=== PATIENT | male | born 1955 | race Hispanic/Latino ===

== ENCOUNTER 2024-06-17 09:19 | Inpatient (IN) | payer OTHER, MEDICARE ==
[~2024-06-17] VITALS: Ht 162.6 cm; Wt 66.9 kg
[2024-06-17 09:45] LABS: APPEARANCE,URINE CLEAR (CLEAR); BILIRUBIN,URINE NEGATIVE (NEGATIVE); COLOR,URINE YELLOW (YELLOW); GLUCOSE, URINE (UA) NEGATIVE (NEGATIVE); KETONES,URINE 20 mg/dL (NEGATIVE); LEUKOCYTE ESTERASE ,URINE NEGATIVE Leu/uL (NEGATIVE); NITRATE,URINE NEGATIVE (NEGATIVE); PH,URINE 5.5 (5.0-8.0); PROTEIN,URINE 50 mg/dL (NEGATIVE)
[2024-06-17 09:47] LABS: HEMATOCRIT 44.3 % (42-54); MEAN CORPUSCULAR HGB CONC 35.2 g/dL (32.0-36.0); MEAN CORPUSCULAR VOLUME 90.8 fL (79-99); PLATELET COUNT (AUTO) 229 K/uL (130-400); RED BLOOD CELL COUNT(AUTO) 4.88 MIL/uL (4.50-6.20); RED CELL DISTRIBUTION WIDTH 12.8 % (11.0-15.5)
[2024-06-17 09:56] LABS: CREATININE 1.3 mg/dL (0.5-1.3); POTASSIUM 4.3 mmol/L (3.5-5.1)
[2024-06-17 09:58] LABS: BASOPHILS # (AUTO) 0.05 K/uL (0.00-0.20); BASOPHILS % (AUTO) 0.6 % (0.0-5.0); EOSINOPHILS # (AUTO) 0.13 K/uL (0.00-0.70); EOSINOPHILS % (AUTO) 1.5 % (0.0-8.0); IMMATURE GRANULOCYTE ABSOLUTE 0.02 K/uL (0-1); LYMPHOCYTES # (AUTO) 1.4 K/uL (1.0-4.8); LYMPHOCYTES % (AUTO) 15.8 % (21.0-51.0); MONOCYTES # (AUTO) 0.9 K/uL (0.1-1.0); MONOCYTES % (AUTO) 9.7 % (3.0-13.0); NEUTROPHILS # (AUTO) 6.4 K/uL (1.8-7.7); NEUTROPHILS % (AUTO) 72.2 % (40.0-77.0)
[2024-06-17 10:00] LABS: ADD UA MICROSCOPIC YES
[2024-06-17 10:02] LABS: MUCUS,URINE RARE LPF (None Seen); RBC,URINE 0-1 /HPF (0-1); SQUAMOUS EPITHELIAL CELL,UR RARE /HPF (0-2)
[2024-06-17 10:29] LABS: ALBUMIN 4.7 g/dL (3.5-5.0); BILIRUBIN,DIRECT 0.2 mg/dL (0.0-0.3); BILIRUBIN,TOTAL 0.7 mg/dL (0.2-1.0); TOTAL PROTEIN, SERUM 8.8 g/dL (6.0-8.3)
[2024-06-17] MEDS ORDERED: IOHEXOL-350 75 ML VIAL IV ONE (11:21)
[2024-06-17] MEDS: ketOROlac 15MG/ML VIAL (15MG/ML) IV ONE (12:04)
[2024-06-17] MEDS: 0.9%NACL 1000ML 1,000 ML IV SCH (15:14)
[2024-06-17] MEDS ORDERED: ONDANSETRON 4MG INJ IV PRN (16:30)
[2024-06-17] MEDS ORDERED: acetaMINOPHEN 325 MG TAB PO PRN ×2 (16:30)
[2024-06-17 19:00] VITALS: BP 177/85; PULSE 61; RESP 20; TEMP 98.6
[2024-06-17] MEDS: morPHINE 2 MG SYG IV PRN (20:24)
[2024-06-17] MEDS: FAMOTIDINE 20MG VIAL IV SCH (20:26)
[2024-06-17 21:30] VITALS: BP 145/76
[2024-06-17 23:39] LABS: HEMOGLOBIN A1C 6.9 % (4.0-6.0)
[2024-06-18] VITALS: BP 139/81; PULSE 61; RESP 20; TEMP 98.1
[2024-06-18 04:00] VITALS: BP 121/74; PULSE 61; RESP 20; TEMP 98.2
[2024-06-18 05:24] LABS: BASOPHILS # (AUTO) 0.04 K/uL (0.00-0.20); BASOPHILS % (AUTO) 0.6 % (0.0-5.0); EOSINOPHILS # (AUTO) 0.14 K/uL (0.00-0.70); HEMATOCRIT 38.4 % (42-54); IMMATURE GRANULOCYTE ABSOLUTE 0.02 K/uL (0-1); LYMPHOCYTES # (AUTO) 1.2 K/uL (1.0-4.8); LYMPHOCYTES % (AUTO) 17.5 % (21.0-51.0); MEAN CORPUSCULAR HEMOGLOBIN 32.7 pg (27.0-33.0); MEAN CORPUSCULAR HGB CONC 35.2 g/dL (32.0-36.0); MONOCYTES # (AUTO) 0.8 K/uL (0.1-1.0); MONOCYTES % (AUTO) 10.8 % (3.0-13.0); NEUTROPHILS # (AUTO) 4.9 K/uL (1.8-7.7); NEUTROPHILS % (AUTO) 68.8 % (40.0-77.0); PLATELET COUNT (AUTO) 190 K/uL (130-400); RED BLOOD CELL COUNT(AUTO) 4.13 MIL/uL (4.50-6.20); RED CELL DISTRIBUTION WIDTH 13.1 % (11.0-15.5)
[2024-06-18 05:50] LABS: ALBUMIN 3.6 g/dL (3.5-5.0); BILIRUBIN,TOTAL 0.5 mg/dL (0.2-1.0); CREATININE 1.5 mg/dL (0.5-1.3); POTASSIUM 4.3 mmol/L (3.5-5.1); TOTAL PROTEIN, SERUM 7.4 g/dL (6.0-8.3)
[2024-06-18] MEDS: INSULIN humuLIN R 100 UNIT/ML 3ML SQ SCH (06:28)
[2024-06-18 07:20] LABS: ERYTHROCYTE SEDIMENTATION RATE 23 MM/HR (0-20)
[2024-06-18 08:00] VITALS: BP 152/87; PULSE 61; RESP 18; TEMP 97.9
[2024-06-18] MEDS: ENOXAPARIN SODIUM 40 MG/0.4 ML SYRINGE SQ SCH (09:00)
[2024-06-18 12:00] VITALS: BP 145/77; PULSE 62; RESP 18; TEMP 98.5
[2024-06-18] MEDS: 0.9%NACL 1000ML 1,000 ML IV SCH (14:23)
[2024-06-18 16:00] VITALS: BP 156/93; PULSE 63; RESP 18; TEMP 97.6
[2024-06-18 20:00] VITALS: BP 171/86; PULSE 61; RESP 18; TEMP 97.4; O2SAT 95
[2024-06-19] VITALS: BP 154/79; PULSE 60; RESP 20; TEMP 97.9
[2024-06-19 04:00] VITALS: BP 136/80; PULSE 66; RESP 16; TEMP 98.3
[2024-06-19 05:28] LABS: BASOPHILS # (AUTO) 0.04 K/uL (0.00-0.20); BASOPHILS % (AUTO) 0.7 % (0.0-5.0); EOSINOPHILS # (AUTO) 0.13 K/uL (0.00-0.70); EOSINOPHILS % (AUTO) 2.2 % (0.0-8.0); IMMATURE GRANULOCYTE ABSOLUTE 0.03 K/uL (0-1); LYMPHOCYTES % (AUTO) 16.3 % (21.0-51.0); MEAN CORPUSCULAR HEMOGLOBIN 32.3 pg (27.0-33.0); MEAN CORPUSCULAR HGB CONC 34.6 g/dL (32.0-36.0); MEAN CORPUSCULAR VOLUME 93.4 fL (79-99); MONOCYTES # (AUTO) 0.6 K/uL (0.1-1.0); NEUTROPHILS % (AUTO) 69.3 % (40.0-77.0); PLATELET COUNT (AUTO) 205 K/uL (130-400); RED BLOOD CELL COUNT(AUTO) 3.96 MIL/uL (4.50-6.20); RED CELL DISTRIBUTION WIDTH 13.1 % (11.0-15.5); WHITE BLOOD COUNT (AUTO) 5.8 K/uL (4.8-10.8)
[2024-06-19 05:34] LABS: CREATININE 1.3 mg/dL (0.5-1.3); POTASSIUM 4.1 mmol/L (3.5-5.1)
[2024-06-19 08:00] VITALS: BP 144/86; PULSE 63; RESP 19; TEMP 97.9
[2024-06-19 12:00] VITALS: BP 172/92; PULSE 65; RESP 19; TEMP 97.4
== END 2024-06-19 15:35 | disposition left against medical advice (07) | DRG 640 ==
LOC: EDH 09:19 → EDHIP 16:22 → 3CH 17:27 → 3DH 06-18 17:13
PROVIDERS: ADMIT Internal Medicine; ATTEND Internal Medicine
DX: E87.1 Hypo-osmolality and hyponatremia (principal); K85.90 Acute pancreatitis without necrosis or infection, unspecified; K86.2 Cyst of pancreas; N17.9 Acute kidney failure, unspecified; E86.1 Hypovolemia; E11.9 Type 2 diabetes mellitus without complications; F17.210 Nicotine dependence, cigarettes, uncomplicated; I95.9 Hypotension, unspecified; I10 Essential (primary) hypertension; I25.10 Atherosclerotic heart disease of native coronary artery without angina pectoris; Z88.8 Allergy status to other drugs, medicaments and biological substances; Z95.1 Presence of aortocoronary bypass graft; Z87.442 Personal history of urinary calculi
CPT/HCPCS: 36415; 74177; 76705; 80048; 80053; 80076; 81001; 82948; 83036; 83690; 83930; 84484; 85025; 85651; 93005; G0378; J1650; J1885; J2270; J3490; Q9967